=== PATIENT | female | born 1985 | race Caucasian/White ===

== ENCOUNTER → 2016-08-27 | Outpatient (CLI) | payer OTHER ==
[~2016-08-27] MED LIST: INSU3INJ3 SQ; NVLGI7030 SC; PRENTAB26 PO; SERT25TA PO
[2016-08-27 16:31] LABS: URINE APPEARANCE CLEAR (CLEAR); URINE BILIRUBIN NEG (NEG); URINE COLOR YELLOW; URINE EPITHELIAL CELL AUTO >30 /lpf (0-5); URINE NITRITE NEG (NEG); URINE PH 7.5 (4.5-7.5); URINE SPECIFIC GRAVITY 1.016 (1.000-1.030); UROBILINOGEN NEG (NEG)
[2016-08-27 16:33] LABS: MANUAL MICROSCOPIC REQUIRED? NO; REVIEW REQ? NO
== END | disposition home or self-care (01) ==
LOC: C.LABSPEC 15:55
PROVIDERS: ATTEND Obstetrics & Gynecology
DX: O24.419 Gestational diabetes mellitus in pregnancy, unspecified control (principal); Z3A.00 Weeks of gestation of pregnancy not specified

== ENCOUNTER → 2016-09-03 | Outpatient (CLI) | payer OTHER ==
[2016-09-03 14:57] LABS: URINE APPEARANCE CLEAR (CLEAR); URINE BILIRUBIN NEG (NEG); URINE COLOR YELLOW; URINE EPITHELIAL CELL AUTO >30 /lpf (0-5); URINE NITRITE NEG (NEG); URINE SPECIFIC GRAVITY 1.021 (1.000-1.030); UROBILINOGEN NEG (NEG)
[2016-09-03 15:07] LABS: MANUAL MICROSCOPIC REQUIRED? NO; REVIEW REQ? NO
== END | disposition home or self-care (01) ==
LOC: C.LABSPEC 13:32
PROVIDERS: ATTEND Obstetrics & Gynecology
DX: O24.419 Gestational diabetes mellitus in pregnancy, unspecified control (principal)

== ENCOUNTER → 2016-09-03 | Outpatient (CLI) | payer OTHER ==
[2016-09-03 13:47] LABS: HEMATOCRIT 36.6 % (37-47)
== END | disposition home or self-care (01) ==
LOC: C.LAB1850 11:54
PROVIDERS: ATTEND Obstetrics & Gynecology
DX: O24.419 Gestational diabetes mellitus in pregnancy, unspecified control (principal)

== ENCOUNTER → 2016-11-03 | Outpatient (CLI) | payer OTHER | END | disposition home or self-care (01) | LOC: C.LABSPEC 12:01 | PROVIDERS: ATTEND Obstetrics & Gynecology | DX: Z34.83 Encounter for supervision of other normal pregnancy, third trimester (principal) ==

== ENCOUNTER → 2016-11-17 | Outpatient (CLI) | payer OTHER | END | disposition home or self-care (01) | LOC: C.LAB1850 11:58 | PROVIDERS: ATTEND Obstetrics & Gynecology | DX: O24.414 Gestational diabetes mellitus in pregnancy, insulin controlled (principal); Z3A.00 Weeks of gestation of pregnancy not specified ==

== ENCOUNTER → 2016-11-17 | Outpatient (CLI) | payer OTHER ==
[2016-11-17 15:04] LABS: BENZODIAZEPINE, URINE NEG (NEG); COCAINE,URINE NEG (NEG); PHENCYCLIDINE, URINE NEG (NEG)
== END | disposition home or self-care (01) ==
LOC: C.LABSPEC 13:24
PROVIDERS: ATTEND Obstetrics & Gynecology
DX: O24.414 Gestational diabetes mellitus in pregnancy, insulin controlled (principal); Z3A.00 Weeks of gestation of pregnancy not specified

== ENCOUNTER 2016-11-19 09:11 | Inpatient (IN) | payer OTHER ==
[~2016-11-19] VITALS: Ht 160 cm; Wt 98.0 kg
[2016-11-19] MEDS ORDERED: LACTATED RINGER'S 1000ML 1,000 ML IV PRN (09:50)
[2016-11-19] MEDS ORDERED: SODIUM CHLORIDE 0.9% 1000ML 1,000 ML IV SCH (09:50)
[2016-11-19] MEDS ORDERED: DEXTROSE 50% 50 ML SYR IV PRN (10:00)
[2016-11-19 10:08] LABS: HEMATOCRIT 36.9 % (37-47); MEAN CELL VOLUME 89.3 fL (80-100); MEAN CORPUSCULAR HEMOGLOBIN 30.3 pg (25-34); MEAN CORPUSCULAR HGB CONC 33.9 g/dl (32-36); PLATELET COUNT 248 K/uL (130-400); RED BLOOD COUNT 4.13 M/uL (4.2-5.4); WHITE BLOOD COUNT 11.42 K/uL (4.8-10.8)
[2016-11-19] MEDS ORDERED: SERT25TA PO (10:08)
[2016-11-19] MEDS ORDERED: NVLGI7030 SC (10:08)
[2016-11-19] MEDS ORDERED: INSU3INJ3 SQ (10:08)
[2016-11-19] MEDS ORDERED: PRENTAB26 PO (10:08)
[2016-11-19 10:11] VITALS: Ht 160 cm; Wt 98.0 kg
[2016-11-19] MEDS ORDERED: PENICILLIN G POTASSIUM IV 6 MU in DEXTROSE 5% 250ML 250 ML IV ONE (10:15)
[2016-11-19] MEDS: LACTATED RINGER'S 1000ML 1,000 ML IV SCH ×2 (10:21→20:10)
[2016-11-19] MEDS: DEXTROSE 5% 1000ML 1,000 ML IV SCH ×2 (10:52→20:09)
[2016-11-19] MEDS: INSULIN REGULAR 250 UNITS in SODIUM CHLORIDE 0.9% 250ML 250 ML IV SCH ×4 (10:55→15:35)
[2016-11-19] MEDS ORDERED: INSULIN REGULAR 250 UNITS in SODIUM CHLORIDE 0.9% 250ML 250 ML IV SCH (11:30)
[2016-11-19] MEDS: PENICILLIN G POTASSIUM IV 3 MU in DEXTROSE 5% 100ML 100 ML IV PRN ×2 (14:26→19:03)
[2016-11-19] MEDS ORDERED: LACTATED RINGER'S 1000ML 500 ML IV PRN ×2 (17:18→20:07)
[2016-11-19] MEDS ORDERED: OXYTOCIN 30 UNITS/500ML NSS IV PRN ×2 (17:30→21:45)
[2016-11-19] MEDS ORDERED: BUPIVACAINE 0.25% 30 ML VIAL ONE (19:06)
[2016-11-19] MEDS ORDERED: EpHEDrine SULFATE INJ 50 MG/ML AMP ONE (19:07)
[2016-11-19] MEDS ORDERED: FENTANYL 2MCG/ML ROPIV 1.25MG/ML 100ML BAG EPI ONE (19:07)
[2016-11-19] MEDS ORDERED: FENTANYL CITRATE INJ 50 MCG/1 ML 2 ML VIAL ONE (19:07)
[2016-11-19] MEDS ORDERED: NALOXONE HCL INJ 1 MG in SODIUM CHLORIDE 0.9% 1000ML 1,000 ML IV PRN (20:07)
[2016-11-19] MEDS ORDERED: DiphenhydrAMINE HCL 50 MG/ML VIAL IV PRN (20:15)
[2016-11-19] MEDS ORDERED: FENTANYL 2MCG/ML ROPIV 1.25MG/ML 100ML BAG EPI PRN (20:15)
[2016-11-19] MEDS ORDERED: ONDANSETRON INJ 2 MG/ML 2 ML VIAL IV PRN (20:15)
[2016-11-19] MEDS ORDERED: EpHEDrine SULFATE INJ 50 MG/ML AMP IV PRN (20:15)
[2016-11-19] MEDS ORDERED: NALBUPHINE HCL INJ 10 MG/ML AMP IV PRN (20:15)
[2016-11-19] MEDS ORDERED: NALOXONE HCL INJ 0.4 MG/1 ML VIAL/CARP IV PRN (20:15)
--- NOTE | 2016-11-19 21:37 | Newborn Progress Note ---
Delivery Note Date of Service Nov 19, 2016. Delivery Care Additional Information: Patient presented with ruptured membranes and contractions at 4 cm. Gestational diabetic on insulin group B strep positive. Patient did require Pitocin augmentation and eventually progressed to fully dilated she then pushed over several contractions and delivered the head without difficulty. Mouth and then nares were then suctioned with bulb. Initially the shoulder was behind the symphysis pubis however after using Wang maneuver we were able to release the anterior shoulder and using gentle traction with no excessive force baby was delivered without difficulty. Live vigorous female no nuchal cord fluid clear. Cord clamped and cut and cord gases obtained cord blood obtained placenta removed with gentle traction IV Pitocin started small first- degree tear repaired with 3-0 Vicryl estimated blood loss 150 mL sponge and instrument counts correct
[2016-11-19] MEDS ORDERED: DIPHTHERIA/TETANUS/PERTUSSIS 0.5 ML SYR/VIAL IM. ONE (21:45)
[2016-11-19] MEDS ORDERED: BENZOCAINE 20% AER SPR 82.5 GM CAN EXT PRN (21:45)
[2016-11-19] MEDS ORDERED: LANOLIN OINT EXT PRN ×2 (21:45)
[2016-11-19] MEDS ORDERED: OXYCODONE/ACETAMINOPHEN 5-325 TAB PO PRN (21:45)
[2016-11-19] MEDS ORDERED: HYDROCORTISONE ACETATE 25 MG SUPP PR PRN (21:45)
[2016-11-19] MEDS ORDERED: ACETAMINOPHEN/CODEINE 300/30MG TAB PO PRN ×2 (21:45)
[2016-11-19] MEDS ORDERED: SUPERCREAM 0.870 % 15GM JAR EXT PRN (21:45)
[2016-11-20 00:15] VITALS: BP 108/59; PULSE 83; TEMP 36.5
[2016-11-20 04:20] VITALS: BP 116/79; PULSE 52; TEMP 36.7
[2016-11-20 06:50] LABS: HEMATOCRIT 35.1 % (37-47)
--- NOTE | 2016-11-20 07:03 | Progress Note ---
Subjective Nov 20, 2016. Subjective conversation w/ patient, physical exam, lab review Ambulation: ambulating normally Voiding: no voiding problems Diet Tolerance: Regular Diet Lochia: Small Objective Vital Signs Date Time Temp Pulse Resp B/P (MAP) Pulse Ox O2 Delivery O2 Flow Rate FiO2 11/20/16 04:20 36.7 52 18 116/79 (91) 11/20/16 00:15 36.5 83 18 108/59 (75) 11/20/16 00:15 Room Air Physical Exam General Appearance: WELL-APPEARING Abdomen: non tender Extremities: no calf tenderness Laboratory Results Last 24 Hours Test 11/19/16 09:57 11/19/16 10:27 11/19/16 11:37 11/19/16 12:03 White Blood Count 11.42 K/uL Red Blood Count 4.13 M/uL Hemoglobin 12.5 g/dL Hematocrit 36.9 % Mean Corpuscular Volume 89.3 fL Mean Corpuscular Hemoglobin 30.3 pg Mean Corpuscular Hemoglobin Concent 33.9 g/dl RDW Standard Deviation 46.8 fL RDW Coefficient of Variation 14.2 % Platelet Count 248 K/uL Mean Platelet Volume 11.0 fL Bedside Glucose 92 mg/dl 103 mg/dl Amniotic Fluid Protein POS Test 11/19/16 12:39 11/19/16 13:35 11/19/16 14:31 11/19/16 15:31 Bedside Glucose 94 mg/dl 77 mg/dl 79 mg/dl 97 mg/dl Test 11/19/16 16:32 11/19/16 17:37 11/19/16 18:41 11/19/16 19:45 Bedside Glucose 71 mg/dl 77 mg/dl 79 mg/dl 70 mg/dl Test 11/19/16 21:13 11/20/16 06:19 Bedside Glucose 102 mg/dl Hemoglobin 12.2 g/dL Hematocrit 35.1 % Assessment and Plan Post- Day#: 1 Continue Routine Care: elizabet
--- NOTE | 2016-11-20 07:35 | Anesthesia Procedure Note ---
Anesthesia Epidural Removal Nt Date & Time Nov 20, 2016 at 07:34 Vital Signs Pain Intensity: 0.0 Vital Signs Past 12 Hours Date Time Temp Pulse Resp B/P (MAP) Pulse Ox O2 Delivery O2 Flow Rate FiO2 11/20/16 04:20 36.7 52 18 116/79 (91) 11/20/16 00:15 36.5 83 18 108/59 (75) 11/20/16 00:15 Room Air Notes Mental Status: alert / awake / arousable, participated in evaluation Nausea / Vomiting: adequately controlled Pain: adequately controlled Airway Patency, RR, SpO2: stable & adequate BP & HR: stable & adequate Hydration State: stable & adequate Neuraxial Anesthesia: was administered Anesthetic Complications: no major complications apparent, pt satisfied with anesthetic care Epidural: removed without complications, with tip intact
[2016-11-20] MEDS: ACETAMINOPHEN 325 MG TAB PO PRN ×2 (07:51→17:21)
[2016-11-20] MEDS: PRENATAL VITAMIN TAB PO SCH (07:52)
[2016-11-20] MEDS: DOCUSATE SODIUM 100 MG CAP PO SCH ×2 (07:52→20:29)
[2016-11-20 08:15] VITALS: BP 126/88; PULSE 70; TEMP 36.3; O2SAT 99
[2016-11-20 12:20] VITALS: BP 120/84; PULSE 64; TEMP 36.4
[2016-11-20 15:25] VITALS: BP 118/79; PULSE 65; TEMP 36.6; O2SAT 98
[2016-11-20] MEDS ORDERED: BISACODYL 5 MG TABEC PO SCH (20:00)
[2016-11-20 20:15] VITALS: BP 123/79; PULSE 72; TEMP 36.4; O2SAT 98
[2016-11-21 00:30] VITALS: BP 110/72; PULSE 68; TEMP 36.4; O2SAT 99
[2016-11-21 06:46] LABS: HEMATOCRIT 35.6 % (37-47); MEAN CELL VOLUME 89.7 fL (80-100); MEAN CORPUSCULAR HEMOGLOBIN 29.5 pg (25-34); MEAN CORPUSCULAR HGB CONC 32.9 g/dl (32-36); MEAN PLATELET VOLUME 11.1 fL (7.4-10.4); PLATELET COUNT 194 K/uL (130-400); RED BLOOD COUNT 3.97 M/uL (4.2-5.4)
[2016-11-21] MEDS ORDERED: BISACODYL 10 MG SUPP PR PRN (07:00)
--- NOTE | 2016-11-21 08:04 | Progress Note ---
Subjective Nov 21, 2016. Subjective conversation w/ patient, physical exam Voiding: no voiding problems Feeding Type: Bottle Feeding Objective Vital Signs Date Time Temp Pulse Resp B/P (MAP) Pulse Ox O2 Delivery O2 Flow Rate FiO2 11/21/16 00:30 36.4 68 20 110/72 (85) 99 Room Air 11/21/16 00:30 99 Room Air 11/20/16 20:15 36.4 72 18 123/79 (94) 98 Room Air 11/20/16 15:25 98 Room Air 11/20/16 15:25 36.6 65 18 118/79 (92) 98 Room Air 11/20/16 12:20 36.4 64 18 120/84 (96) 11/20/16 08:15 36.3 70 20 126/88 (101) 99 Room Air Physical Exam General Appearance: WELL-APPEARING, NO APPARENT DISTRESS Fundus: Firm, Non-Tender Extremities: no calf tenderness Laboratory Results Last 24 Hours Test 11/21/16 06:14 White Blood Count 13.10 K/uL Red Blood Count 3.97 M/uL Hemoglobin 11.7 g/dL Hematocrit 35.6 % Mean Corpuscular Volume 89.7 fL Mean Corpuscular Hemoglobin 29.5 pg Mean Corpuscular Hemoglobin Concent 32.9 g/dl RDW Standard Deviation 47.2 fL RDW Coefficient of Variation 14.3 % Platelet Count 194 K/uL Mean Platelet Volume 11.1 fL Assessment and Plan Post- Day#: 2 Continue Routine Care: - patient states she was previously on Celexa through PCP, but unsure of dose. Did not take during - pt will call PCP after D/C to restart medication - notified by nursing last PM that CYS took the patient's 5 year old away - Social Service consult placed - d/c instructions given, but no d/c till seen by Ultrasound Technician
--- NOTE | 2016-11-21 08:10 | Discharge Instructions ---
Discharge Instructions Date of Service Nov 21, 2016. Admission Reason for Admission: Check Reptured Membrances Discharge Discharge Diagnosis / Problem: same Discharge Goals Goal(s): Routine recovery after delivery Medications Continue Dispensed Medications: supercream, dermaplast Activity Recommendations Activity Limitations: as noted below . Instructions / Follow-Up Instructions / Follow-Up ACTIVITY RECOMMENDATIONS: * Gradual return to full activity over the next 2-3 weeks. * No lifting - nothing heavier than baby over the next 2-3 weeks. * Do not engage in vigorous exercise, sexual activity or sports until cleared by your physician. * Do not drive or operate any motorized equipment until cleared by your physician. * You may shower/bathe daily. MEDICATIONS: For discomfort or pain, you may use Acetaminophen (Tylenol), Ibuprofen (Advil), or Naproxen (Aleve) following the package directions. For constipation you may use Colace following the package directions. BREAST CARE: If you are not breast feeding: * Wear a supportive bra 24 hours a day for one to two weeks. * Avoid stimulating your breasts and nipples as much as possible during the first few weeks after delivery. * When taking a shower, have the warm water hit your back, not breasts. * When your breasts feel full, apply ice packs. Usually three to four times a day helps ease the discomfort. * Take a mild pain medication (Tylenol / Motrin) when you are uncomfortable. If breast feeding: * Use breast milk to lubricate nipples. Lansinoh cream may be used for sore nipples. You do not need to remove cream prior to breast feeding. If using a different brand of cream, check the label for directions regarding removal of cream prior to nursing. * Wear a supportive bra. * If having problems with breasts or breast feeding, call a home care consultant or your health care provider. EPISIOTOMY CARE: After delivery, if you have an episiotomy (stitches), the following steps will ease discomfort and aid healing. * For the first 24 hours after delivery, place ice packs next to your episiotomy to help reduce swelling. * After the first 24 hour-period, sitz baths, either portable or in the tub, are suggested. A shower with a shower arm sprayed over the episiotomy may be comforting. * Yazmin care should be done after each voiding and bowel movement. Squirt warm water from a plastic bottle over the perineum (region of the body between the anus and urinary opening) and pat dry. * Use Dermoplast to ease discomfort. Shake container. [place] directly over the episiotomy. Place a Tucks on a clean sanitary pad next to your episiotomy. SPECIAL CARE INSTRUCTIONS: When you are discharged from the hospital, it is important for you to follow the instructions listed below: * During the first week at home, you should be able to care for yourself and your baby. In addition, the usual light household activities are encouraged. * Limit your activities to the way you feel. Do not try to clean the house or move furniture. Be sensible. * If you actively engage in sports and have done so up until the time of your delivery, you may resume these activities as soon as you feel able. This may take up to one month or even longer. Use good judgment. * Continue to take your vitamins for at least six weeks after the of your baby. * Your diet need not be limited unless you were on a special diet before your delivery. Breast-feeding mothers need around 2500 calories per day and at least 64-80 ounces of fluid per day (8 to 10 glasses). * You should eat foods from the four major food groups. Crash diets or fad diets are to be avoided. Eating lean meats, fresh fruits and vegetables, low-fat dairy products, high fiber foods and a regular exercise program, will help you get back to your pre- weight without putting your health at risk. * Constipation is sometimes a problem after delivery. Take a mild laxative as needed. If breast feeding, Milk of Magnesia is acceptable to use. You may use a suppository or Fleets enema if no episiotomy. * A daily shower or tub bath is suggested. Be sure to thoroughly and gently dry the perineum. * A bloody vaginal discharge will usually continue until around four weeks post . A small amount of bleeding may continue for as long as six weeks. Vaginal discharge changes from the bright red bleeding after delivery to pink then brownish and finally yellowish-pink before becoming white and disappearing. * Bleeding may increase with activity. Your first period may come in 4-8 weeks. If you are breast feeding, your period may be delayed even longer. * [place] (sex) can begin whenever both you and your partner feel comfortable and do not have any form of genital infection. It is recommended that you wait at least six weeks for internal and external healing to occur. If you have questions, please talk to your health care practitioner. A condom should be used to prevent infection and . * Foreplay, gentle intercourse and lubrication is very important the first several times to prevent pain. A water-based lubricant such as K-Y jelly or Astroglide may be used. * If you have RH negative blood and your baby is RH positive, you will receive RHOGAM by injection prior to discharge. The nurse will give you a card to keep with you that has the date and place that you received RHOGAM after delivery. * During your care, you had a Rubella screen done to check for the presence of rubella antibodies in your blood. If your test was negative, you will receive a Rubella vaccine prior to discharge. This vaccine may cause a fever, soreness at the injection site and flu-like symptoms. If these symptoms persist, notify your health care practitioner. is not advised for one month after a Rubella vaccine. * Verbalizes understanding of car seat law as reviewed with patient nursing. * Car Seat hand-out given and reviewed with patient by nursing. * Shaken baby information reviewed with patient by nursing. Call you doctor if: * Heavy bleeding (saturating several pads an hour) or passing clots the size of your fist. * A fever >101 degrees F (38.3 degrees C) on two occasions four hours apart and /or chills. * Unusual pain in the pelvic or vaginal areas. * "Baby Blues" lasting longer than two weeks. If you have any questions or concerns, call your health care practitioner at . FOLLOW UP VISIT: * Please call the office at to schedule a 6 week examination. It is important you keep this appointment. It is important for you to make arrangements for either yearly or twice yearly check-ups thereafter. Current Hospital Diet Patient's current hospital diet: Regular OB Diet Discharge Diet Recommended Diet: Regular OB Diet Pending Studies Studies pending at discharge: no Medical Emergencies . Who to Call and When: Medical Emergencies: If at any time you feel your situation is an emergency, please call 911 immediately. . Non-Emergent Contact Non-Emergency issues call your: Hotel Or Motel Receptionist Call Non-Emergent contact if: temperature is above 100.5 . . "Provider Documentation" section prepared by Orlando Coppola. . VTE Core Measure Inpt VTE Proph given/why not?: Treatment not indicated
[2016-11-21] MEDS: PRENATAL VITAMIN TAB PO SCH (09:14)
[2016-11-21] MEDS: DOCUSATE SODIUM 100 MG CAP PO SCH (09:14)
[2016-11-21 09:36] VITALS: BP 122/86; PULSE 83; TEMP 36.5; O2SAT 98
[2016-11-21 14:10] VITALS: BP_DIAS 86; PULSE 83; TEMP 36.5
== END 2016-11-21 14:10 | disposition home or self-care (01) | DRG 775 ==
LOC: C.OPB 09:11 → C.LD 09:12 → C.OPB 10:01 → C.OBG 11-20 00:22
PROVIDERS: ADMIT Obstetrics & Gynecology; ATTEND Obstetrics & Gynecology
PROC: 0HQ9XZZ Repair Perineum Skin, External Approach (ICD-10-PCS; principal; 2016-11-19)
PROC: 10E0XZZ Delivery of Products of Conception, External Approach (ICD-10-PCS; principal; 2016-11-19)
DX: O24.424 Gestational diabetes mellitus in childbirth, insulin controlled (principal); O99.824 Streptococcus B carrier state complicating childbirth; O70.0 First degree perineal laceration during delivery; Z37.0 Single live birth